=== PATIENT | female | born 1995 | race Caucasian/White ===

== ENCOUNTER → 2018-09-11 | Outpatient (CLI) | payer OTHER ==
[2016-04-26 16:20] VITALS: BP 120/79
[~2018-09-11] MED LIST: DOCU-109 PO; IBUP-1060 PO; OXYC1TAB15 PO; PNV1TAB.3 PO
--- NOTE | 2018-09-11 12:15 | RAD ---
EXAM: Obstetrics sonogram. HISTORY: Size and dates assessment. TECHNIQUE: Sonographic imaging of a gravid uterus was performed. COMPARISON: None. FINDINGS: There is a single intrauterine fetus in breech presentation with a heart rate of 137 bpm. The stomach, kidneys, bladder, spine, brain, facial profile, extremities and heart are unremarkable. There is a three-vessel umbilical cord with normal insertion. There is a grade 1 anterior fundal placenta without evidence of placenta previa. There are small placental lakes. The amniotic fluid index is normal. The cervix is closed and measures 4.2 cm in length. The biparietal diameter is 4.27 cm, corresponding with 18 weeks and 6 days. The head circumference is 15.73 cm, corresponding with 18 weeks and 4 days. The abdominal circumference is 12.85 cm, corresponding with 18 weeks and 3 days. The femoral length is 2.74 cm, corresponding with 18 weeks and 3 days. The estimated gestational age patient combined ultrasound measurements is 18 weeks and 4 days. The estimated weight is 240 g. The estimated due date is 02/08/2019. IMPRESSION: 1. Single intrauterine fetus with an estimated gestational age based on ultrasound measurements of 18 weeks and 4 days and heart rate of 137 beats per minute. 2. Grossly unremarkable anatomy. Electronically signed by: Yen Pruitt MD (09/11/2018 12:13 PM) [place] [id number]
== END | disposition home or self-care (01) ==
LOC: US 10:17
PROVIDERS: ATTEND Obstetrics & Gynecology
DX: O26.842 Uterine size-date discrepancy, second trimester (principal); Z3A.18 18 weeks gestation of pregnancy
CPT/HCPCS: 76805

== ENCOUNTER → 2018-11-27 | Outpatient (CLI) | payer OTHER ==
[2016-04-26 16:20] VITALS: BP 120/79
[2018-11-27 12:49] LABS: BASO % 0 % (0-3); EOS % 1 % (0-3); HEMATOCRIT 31.8 % (36.0-47.0); HEMOGLOBIN 10.9 g/dL (12.0-15.5); LYMPH # 1.3 x10^3/uL (1.0-4.8); LYMPH % 15 % (24-48); MEAN CORPUSCULAR HEMOGLOBIN 33 pg (25-35); MEAN CORPUSCULAR HGB CONC 34 g/dL (31-37); MEAN CORPUSCULAR VOLUME 96 fL (79-100); MONO # 0.5 x10^3/uL (0.0-1.1); MONO % 5 % (0-9); NEUT % 79 % (31-73); PLATELET COUNT 180 x10^3/uL (140-400); RED BLOOD COUNT 3.29 x10^6/uL (3.50-5.40); RED CELL DISTRIBUTION WIDTH 13.2 % (11.5-14.5); WHITE BLOOD COUNT 8.8 x10^3/uL (4.0-11.0)
== END | disposition home or self-care (01) ==
LOC: LAB 12:05
PROVIDERS: ATTEND Obstetrics & Gynecology
DX: O09.90 Supervision of high risk pregnancy, unspecified, unspecified trimester (principal)
CPT/HCPCS: 36415; 82947; 85025; 86850; 86900; 86901; 96372; J2791

== ENCOUNTER 2018-12-26 21:24 | Observation (INO) | payer MEDICAID ==
[2016-04-26 16:20] VITALS: BP 120/79
[2018-12-26 21:54] LABS: BILIRUBIN,URINE NEGATIVE (NEG); CLARITY,URINE CLEAR; COLOR,URINE YELLOW; NITRITE,URINE POSITIVE (NEG); PROTEIN,URINE NEGATIVE (NEG-TRACE)
[2018-12-26 21:59] LABS: AMPHETAMINE/METHAMPHETAMINE NEG (NEG); BARBITURATES NEG (NEG); BENZODIAZEPINES NEG (NEG); CANNABINOIDS NEG (NEG); COCAINE NEG (NEG); METHADONE NEG (NEG); OPIATES NEG (NEG); PHENCYCLIDINE NEG (NEG)
[2018-12-26] MEDS ORDERED: IV RINGERS,LACTATED 1000ML 1,000 ML IV SCH (22:00)
[2018-12-26 22:05] LABS: BACTERIA,URINE MODERATE /HPF (0-FEW)
== END 2018-12-26 22:40 | disposition home or self-care (01) ==
LOC: 3 SO LND 21:24
PROVIDERS: ADMIT Obstetrics & Gynecology; ATTEND Obstetrics & Gynecology
DX: O62.9 Abnormality of forces of labor, unspecified (principal); O99.89 Other specified diseases and conditions complicating pregnancy, childbirth and the puerperium; M54.9 Dorsalgia, unspecified; O99.333 Smoking (tobacco) complicating pregnancy, third trimester; Z3A.33 33 weeks gestation of pregnancy
CPT/HCPCS: 80307; 81001; 87086; G0378; G0379

== ENCOUNTER 2019-01-19 07:26 | Observation (INO) | payer MEDICAID ==
[2016-04-26 16:20] VITALS: BP 120/79
[2019-01-19] MEDS ORDERED: IV RINGERS,LACTATED 1000ML 1,000 ML IV SCH (07:58)
[2019-01-19 08:24] LABS: BILIRUBIN,URINE NEGATIVE (NEG); CLARITY,URINE CLEAR; COLOR,URINE YELLOW; NITRITE,URINE NEGATIVE (NEG); PROTEIN,URINE NEGATIVE (NEG-TRACE)
[2019-01-19 08:30] LABS: BARBITURATES NEG (NEG); BENZODIAZEPINES NEG (NEG); CANNABINOIDS NEG (NEG); COCAINE NEG (NEG); METHADONE NEG (NEG); OPIATES NEG (NEG); PHENCYCLIDINE NEG (NEG)
[2019-01-19 08:31] LABS: AMPHETAMINE/METHAMPHETAMINE NEG (NEG)
[2019-01-19 08:36] LABS: SQUAMOUS EPITHELIAL CELL,UR FEW /LPF
[2019-01-19 08:37] LABS: BACTERIA,URINE MANY /HPF (0-FEW); RBC,URINE OCC /HPF (0-2)
[2019-02-05] MEDS ORDERED: DOCU-109 PO (12:21)
[2019-02-05] MEDS ORDERED: IBUP-1060 PO (12:21)
[2019-02-05] MEDS ORDERED: OXYC1TAB15 PO (12:21)
== END 2019-01-19 12:23 | disposition home or self-care (01) ==
LOC: 3 SO LND 07:26
PROVIDERS: ADMIT Obstetrics & Gynecology; ATTEND Obstetrics & Gynecology
DX: O62.9 Abnormality of forces of labor, unspecified (principal); O21.2 Late vomiting of pregnancy; Z3A.34 34 weeks gestation of pregnancy
CPT/HCPCS: 80307; 81001; 87086; G0378; G0379